=== PATIENT | female | born 1940 | race Caucasian/White ===

== ENCOUNTER 2017-05-19 09:24 | Emergency (ER) | payer MEDICARE ==
[~2017-05-19 09:24] MED LIST: Iopamidol 370 76% 100 ML VIAL ONE
[2017-05-19] MEDS ORDERED: Morphine Sulfate 2 MG/ML SYRINGE ONE ×2 (09:47→13:35)
[2017-05-19 09:49] LABS: #Basophils 0.1 thou/uL (0.0-0.2); #Lymphocytes 1.5 thou/uL (1.20-3.40); #Monocytes 0.5 thou/uL (0.11-0.59); #Neutrophils 12.5 thou/uL (1.40-6.50); %Basophils 0.6 % (0.0-1.0); %Eosinophils 0.3 % (0.0-10.0); %Lymphocytes 10.2 % (21.0-51.0); %Monocytes 3.2 % (0.0-10.0); %Neutrophils 85.8 % (42.0-75.0); Hemoglobin 15.3 g/dL (12.0-16.0); Mean Corpuscular HGB CONC 34.4 g/dL (32.0-36.0); Mean Corpuscular Hemoglobin 31.6 pg (27.0-31.0); Mean Corpuscular Volume 91.8 fl (81.0-99.0); Mean Platelet Volume 8.4 fL (7.4-10.4); Platelet Count 396 thou/uL (130-400); RBC Distribution Width 12.7 % (11.5-14.5); Red Blood Cell (RBC) Count 4.83 mill/uL (4.20-5.40); White Blood Cell (WBC) Count 14.6 thou/uL (4.8-10.8)
[2017-05-19 09:55] LABS: PTT 23.5 SEC (22.9-36.1); Prothrombin Time 12.9 SEC (12.0-14.7)
[2017-05-19 10:03] LABS: ALT (SGPT) 20 U/L (8-55); AST (SGOT) 22 U/L (5-34); Albumin 3.7 g/dL (3.4-4.8); Alkaline Phosphatase 55 U/L (40-150); Anion Gap 12 mmol/L (10-20); BUN (Urea Nitrogen) 15 mg/dL (9.8-20.1); Bilirubin, Total 0.8 mg/dL (0.2-1.2); Calc. Creatinine Clearance 0 mL/min (70-130); Calcium 9.5 mg/dL (7.8-10.44); Carbon Dioxide 28 mmol/L (23-31); Chloride 108 mmol/L (98-107); Estimated GFR-MDRD 65; Globulin 2.7 g/dL (2.4-3.5); Glucose 116 mg/dL (83-110); Potassium 3.8 mmol/L (3.5-5.1); Protein, Total 6.4 g/dL (6.0-8.3); Sodium 144 mmol/L (136-145)
[2017-05-19 10:09] LABS: Clarity Clear (Clear)
[2017-05-19 10:10] LABS: Bacteria/HPF Rare-Few HPF (None Seen); Bilirubin Negative (Negative); Blood, Urine Trace (Negative); Glucose, Urine (Dipstick) Negative (Negative); Leukocyte Negative (Negative); Nitrite Negative (Negative); Protein, Urine (Dipstick) 30 mg/dL (Neg-Trace); RBC/HPF 0-3 HPF (0-3); Squamous Epithelial 0-3 HPF (0-3); WBC/HPF 0-3 HPF (0-3); pH, Urine 5.5 (5.0-9.0)
--- NOTE | 2017-05-19 10:48 | RAD ---
RIGHT HUMERUS 2 VIEWS: Date: 05/19/17 PROVIDED CLINICAL HISTORY: Right humerus pain. FINDINGS: There is no evidence for fracture or other acute osseous abnormality. If there is persistent clinica l concern, conservative management and follow-up imaging are advised. IMPRESSION: As above. POS: [facility]
--- NOTE | 2017-05-19 11:21 | CT ---
CT BRAIN: Date: 05/19/17 PROVIDED CLINICAL HISTORY: Head pain status post fall. FINDINGS: Comparison made with study dated 01/06/15. The ventricular system appears unchanged in size and morp hology. There is no evidence for intracranial hemorrhage or mass effect. The extracranial soft tissu es and osseous structures demonstrate no acute findings. IMPRESSION: No evidence for intracranial hemorrhage or mass effect. POS: [facility]
--- NOTE | 2017-05-19 11:35 | CT ---
CT CERVICAL SPINE: Date: 05/19/17 PROVIDED CLINICAL HISTORY: Neck pain status post injury. FINDINGS: Comparison with 01/06/15. Cervical alignment appears normal. Vertebral body heights appear preserved. There is no evidence for fracture. Cervical degenerative changes are seen, similar to the prior study. There is a tiny right apical pneumothorax. Sub-4.0 mm right upper lobe noncalcified pulmonary nodule, nonspecific. IMPRESSION: 1. No evidence for fracture or traumatic subluxation. 2. Tiny right apical pneumothorax. POS: [facility]
--- NOTE | 2017-05-19 12:24 | CT ---
CONTRAST ENHANCED CT IMAGES OF CHEST AND ABDOMEN AND PELVIS: Date: 05/19/17 HISTORY: 76-year-old with history of fall this morning. FINDINGS: Contrast enhanced CT images of chest, abdomen, and pelvis performed. Sagittal and coronal reconstruc annette images performed of the thoracic and lumbar spine. CT images demonstrate a small right-sided pneumothorax measuring less than 10%. Acute posterior frac ture seen in the right posterior 11th rib. In addition, nondisplaced fracture is seen in the lateral aspect of the right L1, L2, and L3 transverse processes. The other vertebral bodies are grossly unremarkable. No evidence of significant solid organ injury is seen. The right kidney is unremarkable. The left kidney contains a cyst in the upper pole of the left kidn ey and a complex cyst or cystic lesion in the lower pole of the left kidney. Three-dimensional measu rements measuring 5.3 x 6.3 x 7.1 cm. Calcification of the aorta is seen. Coronary artery stents are in place. Mitral annular calcificatio n is seen. IMPRESSION: 1. Acute fracture posterior aspect of the right 11th rib. 2. Acute right L1, L2, and L3 transverse process fractures. POS: [facility]
== END 2017-05-19 13:50 | disposition short-term general hospital (02) ==
LOC: BURERS 09:24
DX: S27.0XXA Traumatic pneumothorax, initial encounter (principal); F03.90 Unspecified dementia, unspecified severity, without behavioral disturbance, psychotic disturbance, mood disturbance, and anxiety; E78.5 Hyperlipidemia, unspecified; I10 Essential (primary) hypertension; W19.XXXA Unspecified fall, initial encounter
CPT/HCPCS: 36416; 51701; 70450; 71260; 72125; 74177; 80053; 81003; 81015; 85025; 85610; 85730; 93005; 94760; 96374; 96376; 36415-59; A4216; J2270